=== PATIENT | male | born 1960 | race Caucasian/White ===

== ENCOUNTER 2016-12-28 22:15 | Emergency (ER) | payer OTHER ==
[2016-12-28 22:38] VITALS: BP 127/54; PULSE 66; TEMP 98.1; BMI 24.4
[2016-12-28] MEDS ORDERED: IBUPROFEN 400 MG TABLET (FP) PO ONE ×2 (23:49→23:59)
[2016-12-28] MEDS ORDERED: AMOX TR/POT CLAV 875MG/125MG TABLETS (FP) PO ONE (23:49)
--- NOTE | 2016-12-28 23:54 | PDOC ---
[id number] is a 56 year old male, with no significant past medical history, who presents to the emergency department with swelling and pain to the left side of his face which has been worsening over the past few days. He reports pain with opening his mouth and palpating his left maxillary region. He denies chest pain, shortness of breath, headache and dizziness. He denies fever, chills, nausea, vomit, diarrhea and constipation. He denies dysuria, frequency, urgency and hematuria. Allergies: NKDA <Mia Dias - Last Filed: 12/29/16 00:07> <Rivas Rebolledo - Last Filed: 12/29/16 01:45> - General Chief Complaint: Edema Stated Complaint: ABSCESS Past History <Mia Dias - Last Filed: 12/29/16 00:07> - Immunization History Immunization Up to Date: No - Psycho/Social/Smoking Cessation Hx Anxiety: No Suicidal Ideation: No Smoking History: Never smoked Number of Cigarettes Smoked Daily: 0 Information on smoking cessation initiated: No Hx Alcohol Use: No Drug/Substance Use Hx: No Substance Use Type: None <Rivas Rebolledo - Last Filed: 12/29/16 01:45> - Past Medical History Allergies/Adverse Reactions: Allergies Allergy/AdvReac Type Severity Reaction Status Date / Time No Known Allergies Allergy Verified 12/28/16 22:35 Home Medications: Ambulatory Orders Amox-Tr/K Cl [Augmentin - 875Mg Tablet] 1 tab PO BID #20 tablet 12/28/16 Ibuprofen [Motrin -] 600 mg PO QID PRN #28 tablet 12/28/16 Acetaminophen [Tylenol] 650 mg PO PRN PRN 12/29/16 Review of Systems - Review of Systems Able to Perform ROS?: Yes Comments:: 12/29/16 00:08 CONSTITUTIONAL: Absent: fever, no chills, no fatigue EYES: Absent: visual changes ENT: Absent: ear pain, no sore throat ORAL: (+) Pain and swelling to his left maxilla. CARDIOVASCULAR: Absent: chest pain, no palpitations RESPIRATORY: Absent: cough, no SOB GI: Absent: abdominal pain, no nausea, no vomiting, no constipation, no diarrhea GENITOURINARY: Absent: dysuria, no frequency, no hematuria MUSCULOSKELETAL: Absent: back pain, no arthralgia, no myalgia SKIN: Absent: rash NEURO: Absent: headache <Mia Dias - Last Filed: 12/29/16 00:07> *Physical Exam - Vital Signs Last Vital Signs Temp Pulse Resp BP Pulse Ox 98.1 F 66 14 127/54 98 12/28/16 22:35 12/28/16 22:35 12/28/16 22:35 12/28/16 22:35 12/28/16 22:35 - Physical Exam Comments: 12/29/16 00:08 GENERAL: Well-appearing, well-nourished. No apparent distress. HEENT: Normocephalic, atraumatic. PERRL, EOM intact. ORAL: (+) Substantial mandible going to maxilla with trismus. No exudates. Tenderness anterior cervical lymph. Carious teeth and poor oral hygiene with necrotic teeth CARDIOVASCULAR: Normal S1, S2. Regular rate and rhythm. PULMONARY: Clear to auscultation bilaterally. ABDOMEN: Soft, non-distended, non-tender. EXTREMITIES: Normal ROM in all four extremities. No gross deformities. SKIN: Warm, dry. No rash NEUROLOGICAL: No focal neurological deficits. <Mia Dias - Last Filed: 12/29/16 00:07> - Vital Signs Last Vital Signs Temp Pulse Resp BP Pulse Ox 98.1 F 66 14 127/54 98 12/28/16 22:35 12/28/16 22:35 12/28/16 22:35 12/28/16 22:35 12/28/16 22:35 <Rivas Rebolledo - Last Filed: 12/29/16 01:45> ED Treatment Course - Medications Given in the ED: ED Medications Discontinued Medications Generic Name Dose Route Start Last Admin Trade Name Freq PRN Reason Stop Dose Admin Amoxicillin/Clavulanate Potassium 1 tab 12/28/16 23:49 12/29/16 00:00 Augmentin - 875mg Tablet PO 12/28/16 23:50 1 tab ONCE ONE Administration Ibuprofen 800 mg 12/28/16 23:49 12/29/16 00:00 Motrin - PO 12/28/16 23:50 800 mg ONCE ONE Administration <Mia Dias - Last Filed: 12/29/16 00:07> Medical Decision Making - Medical Decision Making 12/29/16 00:08 I recommended for the patient to be sent to [facility] for oral surgical consultation which he refuses and requests to leave the ED against AMA with a prescription for antibiotics which he will cook pickled meat at the pharmacy. <Mia Dias - Last Filed: 12/29/16 00:07> *DC/Admit/Observation/Transfer - Attestations Scribe Attestion: 12/29/16 00:08 Documentation prepared by Mia Dias, acting as paramedical aide for Rivas Rebolledo MD, MD <Mia Dias - Last Filed: 12/29/16 00:07> - Discharge Dispostion Admit: No <Rivas Rebolledo - Last Filed: 12/29/16 01:45> Diagnosis at time of Disposition: AMA - Signed out against medical advice, Dental abscess - Discharge Dispostion Disposition: AGAINST MEDICAL ADVICE Condition at time of disposition: Guarded - Prescriptions Prescriptions: Amox-Tr/K Cl [Augmentin - 875Mg Tablet] 1 tab PO BID #20 tablet Ibuprofen [Motrin -] 600 mg PO QID PRN #28 tablet PRN Reason: Pain - Referrals Referrals: STAFF,NOT ON [Primary Care Provider] - - Patient Instructions Additional Instructions: Patient has capacity. He refuses transfer to [facility] for oral surgery. He was explained the possible complications and did not want to be transferred.
[2016-12-28] MEDS ORDERED: AMOX TR/POT CLAV 875MG/125MG TABLETS (FP) ONE (23:59)
== END 2016-12-29 00:21 | disposition left against medical advice (07) ==
LOC: JER 22:15
DX: K04.7 Periapical abscess without sinus (principal)
CPT/HCPCS: 99281-25

== ENCOUNTER 2019-08-01 07:39 | Day surgery (SDC) | payer OTHER ==
[2019-07-22 15:15] VITALS: BMI 24.4
[2019-08-01] MEDS ORDERED: ROPIVACAINE HCL 0.5% 30ML VIAL ONE (08:42)
[2019-08-01] MEDS ORDERED: MIDAZOLAM HCL 2 MG/2 ML SINGLE DOSE VIAL ONE (08:42)
[2019-08-01] MEDS ORDERED: PROPOFOL 20 ML ONE (08:50)
[2019-08-01] MEDS ORDERED: ONDANSETRON 4 MG/2 ML VIAL ONE (10:17)
[2019-08-01] MEDS ORDERED: DEXAMETHASONE SOD PHOSPHATE 4 MG/1 ML VIAL ONE (10:18)
[2019-08-01] MEDS ORDERED: BUPIVACAINE HCL/PF 2.5 MG/ML - 30 ML VIAL IJ ONE (10:34)
[2019-08-01] MEDS ORDERED: BUPIVACAINE HCL/PF 0.25% (2.5MG/ML) 10 ML VIAL IJ ONE (11:55)
[2019-08-01] MEDS ORDERED: ACETAMINOPHEN 325 MG TABLET (FP) PO PRN (12:42)
--- NOTE | 2019-08-01 12:52 | OPR ---
Date of Procedure:08/01/2019 Procedure: Right Shoulder- 1. Diagnostic arthroscopy. 2. Arthroscopic limited debridement of glenohumeral joint (74573). 3. Arthroscopic subacromial decompression (28454). 4. Arthroscopic rotator cuff repair: Supraspinatus (53494). 5. Arthroscopic-assisted biceps tenodesis-subpectoral (22795). 6. Distal clavicle resection (89031, append 51 modifier). Preoperative Diagnoses: 1. Rotator cuff tear: Supraspinatus. 2. Biceps tendon degeneration. 3. Glenohumeral synovitis. 4. Acromioclavicular arthrosis Postoperative Diagnoses: 1. Rotator cuff tear: Supraspinatus. 2. Biceps tendon degeneration and tear. 3. Labral degeneration and fraying; SLAP tear. 4. Glenohumeral synovitis. 5. Subacromial bursitis and adhesions. 7. Acromioclavicular arthrosis Surgeon: Felipe Daniels DO Assistants: Yvon Gooden DO Anesthesia: General anesthesia, IV regional with interscalene nerve block, Local infiltration analgesic with 0.25% Marcaine (axillary incision) Estimated Blood Loss: Minimal Drains: None Total IV Fluids: Per anesthesia record Specimens: None Implants: Arizmendi and Nephew 1.9 mm SutureFix [place], Double loaded with Suture, and 4.5 mm FootPrint PEEK anchor with UltraTape Complications: None Disposition: PACU Condition: Hemodynamically stable Indications: Samuel Sy presented to us with chronic right shoulder pain. His symptoms, signs, and imaging were consistent with the above noted diagnoses. He failed 6 months of conservative measures, including oral anti- inflammatory medications, activity modification, physical therapy/home exercise program, during which he received two cortisone injections. He ultimately elected to proceed with surgical intervention after discussion of the risks, benefits, alternatives. We discussed risks including but not limited to, bleeding, pain, infection, scarring, damage to neurovascular structures, blood clots, pulmonary embolus, need for additional surgery, incomplete relief of pain , and incomplete return of function. He expressed understanding and wished to proceed. He underwent preoperative medical evaluation clearance and optimization prior to surgery. Procedure Details: He was identified in the preoperative area. The right shoulder was marked as the operative site and consent was completed and confirmed. An interscalene block was performed by the anesthesia team. He was later transferred to the operating room and placed in supine position the operating room. General anesthesia was induced without difficulty. He was repositioned into beach chair with all bony prominences appropriately padded. The neck was in neutral alignment. A surgical time-out was performed identifying the correct patient, procedure, and site. Antibiotics were given within 1 hour prior to surgical incision. The upper extremity was prepped and draped in standard sterile fashion. Examination under anesthesia: Passive range of motion of the right shoulder showed forward elevation of 170, abduction 100, external rotation at side 60 , SABER 90, SABIR 40. This was compared to her contralateral shoulder which shows forward elevation of 170, abduction 100 external rotation at side 60, SABER 90, SABIR 40, and internal rotation to her mid thoracic spine. Diagnostic arthroscopy: We began the procedure with the standard posterolateral portal, entered the glenohumeral joint, and an anterior portal was made within the rotator cuff interval under direct visualization with the assistance of a spinal needle. A probe was used to assist with diagnostic arthroscopy and we visualized from both posteriorly and anteriorly. Evaluation of the glenohumeral joint showed mild synovitis anteriorly and superiorly. The superior labrum had a degenerative tear that was debrided back to a stable base. The anterior labrum was probed and found to be intact. The posterior labrum was probed and found to be intact. There were no loose bodies in the inferior pouch. There was no HAGL lesion. The biceps tendon showed hyperemia, fraying and hypertrophy. The rotator cuff interval was normal. The axillary recess was empty. The subscapularis was probed and found to be intact. The articular surface of the supraspinatus was found to be torn from the greater tuberosity. The articular surface of the infraspinatus and teres minor tendons were intact. The glenoid and humeral head showed no significant chondral defects. Evaluation of the subacromial space showed moderate bursitis and adhesions. There was a small acromial spur anteriorly. There was fraying of the CA ligament. The AC joint was intact. The anterior aspect of the supraspinatus tendon was found to be torn from the tuberosity. Arthroscopic limited debridement of the glenohumeral joint: We used a combination of the arthroscopic motorized shaver and radiofrequency device to perform a limited debridement inside the glenohumeral joint. The hyperemia, erythema, and synovitis of the joint and joint capsule was focally debrided. Synovitic fronds were thermally ablated. Labral fraying and degeneration was also resected and debrided to a stable edge. The biceps tendon was tenotomized as it inserted into the superior labral complex and the remaining portion of the biceps tendon was allowed to retract into the bicipital groove for later tenodesis. Arthroscopic-assisted biceps tenodesis: We made a 2 cm incision along Liz's lines in the axillary fold. Sharp dissection was carried out down to the level of the pectoralis major. The plane between the pectoralis major and the short head of biceps tendon was developed bluntly down to the level of the humeral bone, where we identified the long head of biceps tendon and delivered it retrograde out of the wound. The underlying soft tissue was resected and the bone was frayed with a 1/4-inch osteotome. We then selected a 1.9 SutureFix anchor and placed the anchor high within the bicipital groove underneath the pectoralis major tendon. The sutures were then passed just proximal to the musculotendinous junction of the long head of biceps in an alternating simple versus lasso loop configuration. Tying these sutures down tenodesed the tendon onto the underlying frayed humeral bone. We used an arthroscopic knot pusher to get excellent knot fixation, and then arthroscopic undercutter operator to cut the remaining length of the suture. The remaining length of the biceps tendon was resected. We confirmed our arthroscopic knots and position of the biceps tendon underneath the pectoralis major with the arthroscope. We thoroughly irrigated the wound. Arthroscopic subacromial decompression: The subacromial space was entered from posteriorly. A separate anterior-lateral portal was made for additional instrumentation and visualization. We then visualized the rotator cuff pattern as noted above, and performed our subacromial decompression in a systematic fashion from anterior to posterior and from lateral to medial, removing the bursal tissue carefully. This was done with a radiofrequency device and motorized shaver. The undersurface of the acromion was skeletonized and gently debrided to a flat smooth undersurface. There was a small anterior-inferior spur that was resected with a motorized bur. Arthroscopic AC joint resection: The AC joint space was narrowed, with arthritic changes including adelaide-articular osteophytes and sclerosis. We used the anterior and lateral portals for instrumentation. Soft tissue within the AC joint was removed with a motorized shaver and radiofrequency device. We resected the joint by using a barrel kamron 4 mm in diameter. 2-3 mm of the medial aspect of the acromion was burred to a flat surface and about 6-7 mm of the lateral end of the clavicle was similarly resected with the kamron. The surrounding osteophytes were also resected. The AC joint was stable upon completion of the distal clavicle excision. Approximately 1 cm of space was present between the acromion and clavicle after the resection. Arthroscopic rotator cuff repair: We turned our attention to rotator cuff repair of the supraspinatus. We debrided the remnant tissue over the greater tuberosity and debrided frayed tissue from the rotator cuff tendon edge. We debrided the greater tuberosity with a motorized bur to slightly decorticate it , preparing a bony bed to receive the rotator cuff tendon. We passed a UltraTape through the supraspinatus with the tissue-piercing Firstpass, approximately 1.5 cm from its torn edge in a horizontal mattress pattent. Sutures were then placed into a 4.5 mm Arizmendi and Nephew PEEK FootPrint anchor for repair of the supraspintatus and it was placed in the lateral aspect of the footprint. It had excellent fixation within the bone. This achieved good fixation of the rotator cuff into the greater tuberosity with good compression of the rotator cuff into the the tuberosity footprint from medial to lateral. We promoted some localized bone bleeding and marrow elements with an awl in the lateral aspect of the greater tuberosity. We thoroughly irrigated the subacromial space and we removed the arthroscopic equipment. Wound closure: The arthroscopic portal incisions were closed with 3-0 Monocryl subcuticular stitch with Steri strips. The axillary incision was closed with 2- 0 Vicryl, 3-0 Monocryl subcuticular stitch, and Dermabond skin glue. The shoulder was sterilely dressed and placed in a shoulder immobilizer. Post-operative Details: I spoke with the family regarding the operation after surgery. Postoperative rehabilitation: Arthroscopic rotator cuff repair protocol. The patient will remain in a shoulder immobilizer for 4-5 weeks. Early passive range of motion okay with no limits and advance as tolerated; no pendulums. No strengthening for at least 5 months. Attestation for tax accounting assistant: Dr. Yvon Gooden DO acted as the tax accounting assistant. There was no qualified resident or physician medical claims assistant available to do so.
[2019-08-01 13:41] VITALS: PULSE 56
[2019-08-01 14:55] VITALS: TEMP 97.5
[2019-08-01 15:27] VITALS: BP 108/62
--- NOTE | 2019-08-08 13:42 | PATH ---
Surgical Pathology Report Patient Name: KIA CARABALLO Med. Rec. #: [id number] /Age/Gender: 1960 (Age: 59) / M Account: [id number] Location: [facility] Taken: 08/01/2019 Received: 08/01/2019 Reported: 08/08/2019 Physicians: Felipe Daniels DO Specimen(s) Received A: SHAVINGS RIGHT SHOULDER B: RIGHT SHOULDER BICEPS TENDON Clinical History Right shoulder, rotator cuff tear, bursitis Final Diagnosis A. SHOULDER, RIGHT, ARTHROSCOPIC SHAVINGS: FIBROCARTILAGINOUS TISSUE AND BONE. B. SHOULDER, RIGHT, BICEPS TENDON, REPAIR: PORTION OF TENDON. Electronically Signed Loretta Singh M.D. Gross Description A. Received in formalin, labeled "right shoulder shavings" is a 3.5 x 2 x 0.3 cm portion of light dumont and yellow-dumont tissue. [facility] tissue is submitted in one cassette. B. Received in formalin, labeled "right shoulder, biceps tendon" is a 7.5 x 1.2 x 0.3 cm portion of dumont tendon. [facility] sections are submitted in one cassette.
== END 2019-08-01 16:25 | disposition home or self-care (01) ==
LOC: FASU 07:39
PROVIDERS: ATTEND Orthopaedic Surgery
PROC: 0RNJ4ZZ Release Right Shoulder Joint, Percutaneous Endoscopic Approach (ICD-10-PCS; 2019-08-01)
PROC: 0RBJ4ZZ Excision of Right Shoulder Joint, Percutaneous Endoscopic Approach (ICD-10-PCS; 2019-08-01)
PROC: 0PB94ZZ Excision of Right Clavicle, Percutaneous Endoscopic Approach (ICD-10-PCS; 2019-08-01)
PROC: 0LQ14ZZ Repair Right Shoulder Tendon, Percutaneous Endoscopic Approach (ICD-10-PCS; principal; 2019-08-01 10:34)
PROC: 0LS14ZZ Reposition Right Shoulder Tendon, Percutaneous Endoscopic Approach (ICD-10-PCS; 2019-08-01 10:34)
DX: M75.101 Unspecified rotator cuff tear or rupture of right shoulder, not specified as traumatic (principal); M66.821 Spontaneous rupture of other tendons, right upper arm; S43.431A Superior glenoid labrum lesion of right shoulder, initial encounter; M65.811 Other synovitis and tenosynovitis, right shoulder; M75.51 Bursitis of right shoulder; M75.01 Adhesive capsulitis of right shoulder; M19.011 Primary osteoarthritis, right shoulder; X58.XXXA Exposure to other specified factors, initial encounter; Y93.9 Activity, unspecified; Y92.9 Unspecified place or not applicable
CPT/HCPCS: 88304-TC; 94760

== ENCOUNTER 2020-07-30 11:47 | Emergency (ER) | payer OTHER ==
--- NOTE | 2020-07-30 11:51 | PDOC ---
Rapid Medical Evaluation Time Seen by Provider: 07/30/20 11:49 Medical Evaluation: Allergies Allergy/AdvReac Type Severity Reaction Status Date / Time No Known Drug Allergies Allergy Verified 08/01/19 08:19 07/30/20 11:49 I performed a brief in-person evaluation of this patient. Pt is a 60 y/o male with left shoulder pain for one week but last night was worse. He denies any cp or sob. He denies any injury. Pertinent physical exam findings: No significant decreased ROM of the L shoulder, sensation intact distally I have ordered the following: L shoulder xray Patient to proceed to ED for further evaluation. Discharge Disposition - Diagnosis Left shoulder pain - Referrals - Patient Instructions - Post Discharge Activity
[2020-07-30 11:59] VITALS: BP 125/77; PULSE 73; TEMP 98.3; BMI 25.1
--- NOTE | 2020-07-30 12:40 | PDOC ---
History of Present Illness - General Chief Complaint: Pain Stated Complaint: SHOULDER PAIN Time Seen by Provider: 07/30/20 11:49 - History of Present Illness Initial Comments: 07/30/20 12:38 60-year-old male without comorbidities presents for left shoulder pain x2 weeks without systemic symptoms. Past History - Medical History Allergies/Adverse Reactions: Allergies Allergy/AdvReac Type Severity Reaction Status Date / Time No Known Drug Allergies Allergy Verified 07/30/20 11:50 Home Medications: Ambulatory Orders Tamsulosin HCl 0.4 mg PO BID 07/22/19 Anemia: No Asthma: No Cancer: No Cardiac Disorders: No CVA: No COPD: No CHF: No Dementia: No Diabetes: No GI Disorders: No Disorders: Yes (BPH) HTN: No Hypercholesterolemia: No Liver Disease: No Seizures: No Thyroid Disease: No - Surgical History Abdominal Surgery: No Appendectomy: No Cardiac Surgery: No Cholecystectomy: No Lung Surgery: No Neurologic Surgery: No Orthopedic Surgery: No - Immunization History Immunization Up to Date: No - Psycho-Social/Smoking History Smoking History: Never smoked Have you smoked in the past 12 months: No Number of Cigarettes Smoked Daily: 0 - Substance Abuse Hx (Audit-C & DAST Scrn) How often the patient has a drink containing alcohol: Never Score: In Men: 4 or > Positive; In Women: 3 or > Positive: 0 Screen Result (Pos requires Nsg. Audit-10AR): Negative In the last yr the pt used illegal drug/Rx for NonMed reason: No Score: Yes response is considered Positive: 0 Screen Result (Positive result requires Nsg. DAST-10): Negative Review of Systems - Review of Systems Constitutional: No: Fever Musculoskeletal: Yes: Joint Pain *Physical Exam - Vital Signs Last Vital Signs Temp Pulse Resp BP Pulse Ox 98.3 F 73 18 125/77 100 07/30/20 11:50 07/30/20 11:50 07/30/20 11:50 07/30/20 11:50 07/30/20 11:50 - Physical Exam 07/30/20 12:38 Full range of motion of the left shoulder. 4 out of 5 supraspinatus isolation 3 out of 5 external rotation. Mildly positive impingement maneuvers no tenderness no gross sensorimotor deficits negative Spurling maneuver neurovascular intact. Medical Decision Making - Medical Decision Making 09/14/20 12:38 Left shoulder x-ray show DJD at the AC joint and a type III acromion with a large subacromial bone spur no evidence of fracture or trauma Left shoulder impingement syndrome possible rotator cuff tear follow-up with orthopedics. Discussed anti-inflammatories patient will take Motrin and Tylenol for pain I have reviewed the pathophysiology with the patient. They are in agreement with the treatment plan all questions were answered to their satisfaction. Understanding for follow-up without fail was also conveyed to the patient. Again they are in agreement. Discharge - Discharge Information Problems reviewed: Yes Clinical Impression/Diagnosis: Left shoulder pain Condition: Stable Disposition: HOME - Admission No - Follow up/Referral Referrals: Pita Fernando MD [Primary Care Provider] - Felipe Daniels DO [Staff Physician] - - Patient Discharge Instructions Additional Instructions: Tylenol Motrin as directed for pain. Return to the emergency room for worsening symptoms. Without fail follow-up with orthopedic surgery in 2 to 3 days for further evaluation and treatment options. - Post Discharge Activity
== END 2020-07-30 12:51 | disposition home or self-care (01) ==
LOC: JERFT 11:47 → JER 11:47 → JERFT 12:51
DX: M25.512 Pain in left shoulder (principal)
CPT/HCPCS: 73030-TC-LT-FY; 99283-25

== ENCOUNTER 2020-08-30 20:04 | Emergency (ER) | payer OTHER ==
[2020-08-30 20:14] VITALS: BP 112/57; PULSE 68; TEMP 98.4; BMI 25.8
--- OUTSIDE RECORDS SUMMARY | 2020-08-30 20:23 | XMS ---
:1960 [address] [facility] Support Name Relationship Address Phone UE Unavailable Unavailable Unavailable SE Unavailable Unavailable Unavailable YOBANY JOAQUIN PARTNER [address] [place] [address] Re-disclosure Warning The records that you are about to access may contain information from federally- assisted alcohol or drug abuse programs. If such information is present, then the following federally mandated warning applies: This information has been disclosed to you from records protected by federal confidentiality rules (42 CFR part 2). The federal rules prohibit you from making any further disclosure of this information unless further disclosure is expressly permitted by the written consent of the person to whom it pertains or as otherwise permitted by 42 CFR part 2. A general authorization for the release of medical or other information is NOT sufficient for this purpose. The Federal rules restrict any use of the information to criminally investigate or prosecute any alcohol or drug abuse patient.The records that you are about to access may contain highly sensitive health information, the redisclosure of which is protected by Article 27-F of the [facility] Public [facility] law. If you continue you may haveaccess to information: Regarding HIV / AIDS; Provided by facilities licensed or operated by the [facility] Office of Mental Health; or Provided by the [facility] Office for People With Developmental Disabilities. If such information is present, then the following [facility] mandated warning applies: This information has been disclosed to you from confidential records which are protected by state law. State law prohibits you from making any further disclosure of this information without the specific written consent of the person to whom it pertains, or as otherwise permitted by law. Any unauthorized further disclosure in violation of state law may result in a fine or long term sentence or both. A general authorization for the release of medical or other information is NOT sufficient authorization for further disclosure. Insurance Providers Payer name Policy type Policy ID Covered Covered libertarian's Policy P fabio / Coverage libertarian ID relationship to [place] [facility] ormation type s[place] [facility] [id number] MEDICAID COMM PLAN
[2020-08-30] MEDS ORDERED: METHOCARBAMOL 500 MG TABLET PO ONE (20:38)
[2020-08-30] MEDS ORDERED: METHOCARBAMOL 500 MG TABLET ONE (20:42)
--- NOTE | 2020-08-30 20:43 | PDOC ---
History of Present Illness - General Chief Complaint: Pain, Acute Stated Complaint: R/SIDED NECK PAIN/SHOULDERBLADE AND ARM Time Seen by Provider: 08/30/20 20:23 History Source: Patient Exam Limitations: No Limitations - History of Present Illness Initial Comments: 08/30/20 20:39 HISTORY OF PRESENT ILLNESS: 60-year-old male presents emergency department for evaluation of right lateral neck pain radiating to his right shoulder for the past 5 days and pain to the left thumb for 2 weeks. Patient denies any trauma and is unable to identify any aggravating or alleviating factors. Reports the pain in his neck is a stiffness that does not get better despite taking [id number] medications. Pain in his thumb is a throbbing sensation which he rates 7/10. No recent travel or sick contacts. PAST MEDICAL HISTORY: Denies past medical history SURGICAL HISTORY: Denies ALLERGIES: No known drug allergies REVIEW OF SYSTEMS General/Constitutional: Denies fever or chills. Denies weakness, weight change. HEENT: Denies change in vision. Denies ear pain or discharge. Denies sore throat. Cardiovascular: Denies chest pain or shortness of breath. Respiratory: Denies cough, wheezing, or hemoptysis. Gastrointestinal: Denies nausea, vomiting, diarrhea or constipation. Denies rectal bleeding. Genitourinary: Denies dysuria, frequency, or change in urination. Musculoskeletal: See HPI Skin and breasts: Denies rash or easy bruising. Neurologic: Denies headache, vertigo, loss of consciousness, or loss of sensation. Psychiatric: Denies depression or anxiety. Endocrine: Denies increased thirst. Denies abnormal weight change. Hematologic/Lymphatic: Denies anemia, easy bleeding, or history of blood clots. Allergic/Immunologic: Denies hives or skin allergy. Denies latex allergy. PHYSICAL EXAM General Appearance: Well-appearing, appropriately dressed. No apparent distress, no intoxication. Musculoskeletal/Extremities: Normal inspection. FROM of all extremities, normal capillary refill. Pelvis Stable. No CVA tenderness. No tenderness to extremities, pedal edema, swelling, erythema or deformity. Palpable muscle spasm in the right sternocleidomastoid. No bony tenderness, deformity, crepitus or step-off present the bones of the right shoulder or left arm. Neurovascularly intact. Past History - Medical History Allergies/Adverse Reactions: Allergies Allergy/AdvReac Type Severity Reaction Status Date / Time No Known Drug Allergies Allergy Verified 07/30/20 11:50 Home Medications: Ambulatory Orders Tamsulosin HCl 0.4 mg PO BID 07/22/19 Methocarbamol [Robaxin -] 1,500 mg PO Q8H #42 tablet 08/30/20 Anemia: No Asthma: No Cancer: No Cardiac Disorders: No CVA: No COPD: No CHF: No Dementia: No Diabetes: No GI Disorders: No Disorders: Yes (BPH) HTN: No Hypercholesterolemia: No Liver Disease: No Seizures: No Thyroid Disease: No - Surgical History Abdominal Surgery: No Appendectomy: No Cardiac Surgery: No Cholecystectomy: No Lung Surgery: No Neurologic Surgery: No Orthopedic Surgery: No - Immunization History Immunization Up to Date: No - Psycho-Social/Smoking History Smoking History: Never smoked Have you smoked in the past 12 months: No Number of Cigarettes Smoked Daily: 0 - Substance Abuse Hx (Audit-C & DAST Scrn) How often the patient has a drink containing alcohol: Never Score: In Men: 4 or > Positive; In Women: 3 or > Positive: 0 Screen Result (Pos requires Nsg. Audit-10AR): Negative In the last yr the pt used illegal drug/Rx for NonMed reason: No Score: Yes response is considered Positive: 0 Screen Result (Positive result requires Nsg. DAST-10): Negative *Physical Exam - Vital Signs Last Vital Signs Temp Pulse Resp BP Pulse Ox 98.4 F 68 19 112/57 L 100 08/30/20 20:11 08/30/20 20:11 08/30/20 20:11 08/30/20 20:11 08/30/20 20:11 Medical Decision Making - Medical Decision Making 08/30/20 20:41 A/P: 60-year-old male with bolus and left thumb pain Lung reduction 1 g orally now X-rays of the left hand Reassess 08/30/20 20:51 X-rays as read by me: No acute fractures or dislocations present. No bony abn ormalities noted. Discharged home with a prescription for Robaxin and referral for orthopedist I discussed the physical exam findings, ancillary test results and final diagnoses with the patient. I answered all of the patient's questions. The patient was satisfied with the care received and felt comfortable with the discharge plan and treatment plan. The patient will call their primary care phys ician within 24 hours to arrange follow-up and will return to the Emergency Department with any new, persistent or worsening symptoms. Portions of this note have been documented using voice recognition software. As a result, errors may occur in the economic adviser process. Effort has been made to correct all grammatical and economic adviser error, but some may have been missed which may produce sporadic inaccurate economic adviser or nonsensical phrases. Discharge - Discharge Information Problems reviewed: Yes Clinical Impression/Diagnosis: Torticollis, acquired, Pain of left thumb Condition: Stable Disposition: HOME - Admission No - Additional Discharge Information Prescriptions: Methocarbamol [Robaxin -] 1,500 mg PO Q8H #42 tablet - Follow up/Referral Referrals: Don Hernandez MD [Staff Physician] - - Patient Discharge Instructions Additional Instructions: Rest, no heavy lifting or exercise until pain is resolved Hot soaks to neck and low back as often as possible/hot showers or Jacuzzis No massage or therapy until spasm is gone Begin referral for an orthopedist. Schedule appointment for reevaluation of your hand if pain is not improved. Continue naproxen 2-220 mg tablets every 12 hours for the next 3 days then as needed for pain and swelling Robaxin 1500mg every 8 hours as needed for spasm If not significant improvement within 24 hours with medication and rest regime, followup with private physician for change in medications and /or therapy. - Post Discharge Activity Work/Back to School Note: Back to Work
== END 2020-08-30 21:14 | disposition home or self-care (01) ==
LOC: JERFT 20:04
DX: M43.6 Torticollis (principal); M79.645 Pain in left finger(s)
CPT/HCPCS: 73130-TC-LT-FY; 99283-25

== ENCOUNTER 2020-09-05 10:47 | Emergency (ER) | payer OTHER ==
[2020-09-05 10:53] VITALS: BP 127/73; PULSE 66; TEMP 98; BMI 25.5
--- OUTSIDE RECORDS SUMMARY | 2020-09-05 11:01 | XMS ---
:1960 Author Organization [facility] Support Name Relationship Address Phone UE Unavailable Unavailable Unavailable SE Unavailable Unavailable Unavailable YOBANY JOAQUIN [employer]NER [address] [place] [address] Re-disclosure Warning The records that you are [...] is protected by Article 27-F of the [facility] Public Health law. If you continue you may haveaccess to information: Regarding HIV / AIDS; Provided by facilities licensed or operated by the [facility] Office of Mental Health; or Provided by the [facility] Office for People With Developmental Disabilities. If such information is present, then the following [facility] mandated warning applies: This information has been [...] law may result in a fine or mcfp sentence or both. A general authorization for the release of medical or other information is NOT sufficient authorization for further disclosure. Insurance Providers Payer name Policy type Policy ID Covered Covered green party's Policy P fabio / Coverage green party ID relationship to [employer] ormation type sullivan [facility] [id number] MEDICAID COMM PLAN
--- NOTE | 2020-09-05 11:45 | PDOC ---
History of Present Illness - General Chief Complaint: Pain, Acute Stated Complaint: RT SIDE NECK PAIN RADIATES DOWN THE THE SHOULDER Time Seen by Provider: 09/05/20 11:22 - History of Present Illness Initial Comments: 09/05/20 11:43 60-year-old male presents for evaluation of right shoulder pain. Sent by an orthopedic surgeon for evaluation. He was seen in the emergency room for the same problem a few weeks ago. Past History - Medical History Allergies/Adverse Reactions: Allergies Allergy/AdvReac Type Severity Reaction Status Date / Time No Known Drug Allergies Allergy Verified 09/05/20 10:53 Home Medications: Ambulatory Orders Tamsulosin HCl 0.4 mg PO BID 07/22/19 Methocarbamol [Robaxin -] 1,500 mg PO Q8H #42 tablet 08/30/20 Anemia: No Asthma: No Cancer: No Cardiac Disorders: No CVA: No COPD: No CHF: No Dementia: No Diabetes: No GI Disorders: No Disorders: Yes (BPH) HTN: No Hypercholesterolemia: No Liver Disease: No Seizures: No Thyroid Disease: No - Surgical History Abdominal Surgery: No Appendectomy: No Cardiac Surgery: No Cholecystectomy: No Lung Surgery: No Neurologic Surgery: No Orthopedic Surgery: No - Immunization History Immunization Up to Date: No - Psycho-Social/Smoking History Smoking History: Never smoked Have you smoked in the past 12 months: No Number of Cigarettes Smoked Daily: 0 Information on smoking cessation initiated: No - Substance Abuse Hx (Audit-C & DAST Scrn) How often the patient has a drink containing alcohol: Never Score: In Men: 4 or > Positive; In Women: 3 or > Positive: 0 Screen Result (Pos requires Nsg. Audit-10AR): Negative In the last yr the pt used illegal drug/Rx for NonMed reason: No Score: Yes response is considered Positive: 0 Screen Result (Positive result requires Nsg. DAST-10): Negative Review of Systems - Review of Systems Musculoskeletal: Yes: Joint Pain *Physical Exam - Vital Signs Last Vital Signs Temp Pulse Resp BP Pulse Ox 98.0 F 66 16 127/73 100 09/05/20 10:50 09/05/20 10:50 09/05/20 10:50 09/05/20 10:50 09/05/20 10:50 - Physical Exam 09/05/20 11:43 Right shoulder weakness 3 out of 5 supraspinatus isolation No gross sensorimotor deficits neurovascular intact Medical Decision Making - Medical Decision Making 09/05/20 11:44 Patient referred to pain management by orthopedic surgery patient presented to the hospital in error will refer him to pain management [facility] NKay[facility] Carl and Michael edward. Discharge - Discharge Information Problems reviewed: Yes Clinical Impression/Diagnosis: Right shoulder pain Condition: Stable Disposition: HOME - Admission No - Follow up/Referral Referrals: Yvon Gooden DO [Primary Care Provider] - - Patient Discharge Instructions Additional Instructions: Please return to [facility] you came to the hospital in [place]. Return to the emergency room for further issues should you require emergency services. - Post Discharge Activity
== END 2020-09-05 11:45 | disposition home or self-care (01) ==
LOC: JERFT 10:47
DX: M25.511 Pain in right shoulder (principal)
CPT/HCPCS: 99284-25